=== PATIENT | male | born 1960 | race Caucasian/White ===

== ENCOUNTER 2021-04-18 14:21 | Observation (INO) | payer OTHER ==
[2021-04-18 15:04] LABS: BASO % 1.9 % (0-2.0); EOS % 2.9 % (0-4.5); HEMATOCRIT 43.2 % (35.4-49); HEMOGLOBIN 14.6 GM/dl (11.7-16.9); LYMPH % 15.2 % (8-40); MCH 31.9 pg (25.7-33.7); MCHC 33.9 g/dl (32.0-35.9); MEAN CELL VOLUME 94.2 fl (80-96); MONO % 8.4 % (3.8-10.2); NEUT % 71.6 % (42.8-82.8); PLATELET COUNT 190 10^3/uL (134-434); RBC 4.59 M/mm3 (4.00-5.60); RDW 14.4 % (11.9-15.9); WHITE BLOOD COUNT 8.8 K/mm3 (4.0-10.8)
[2021-04-18 15:20] LABS: ALBUMIN 3.2 g/dl (3.4-5.0); ALK PHOS 50 U/L (45-117); ANION GAP 13 MMOL/L (8-16); BILIRUBIN,TOTAL 1.1 mg/dl (0.2-1); CALCIUM 8.4 mg/dl (8.5-10); CHLORIDE 101 mmol/L (98-107); CO2 23 mmol/L (21-32); CREATININE 1.5 mg/dl (0.55-1.3); GLUCOSE,RANDOM 120 mg/dl (74-106); SGOT/AST 22 U/L (15-37); SGPT/ALT 15 U/L (13-61); SODIUM 137 mmol/L (136-145); TOT PROT 5.5 g/dl (6.4-8.2)
[2021-04-18 15:34] LABS: ACTIVATED PTT 32.4 SECONDS (25.2-36.5)
[2021-04-18 15:39] LABS: INR 0.86 (0.82-1.09); PROTHROMBIN TIME (PATIENT) 9.6 SEC (10.2-13.0)
[2021-04-18 15:43] LABS: EPITHELIAL CELLS RARE /hpf
[2021-04-18 16:37] LABS: URINE AMPHETAMINES NEGATIVE (NEGATIVE)
[2021-04-18 16:38] LABS: COCAINE, UR POSITIVE (NEGATIVE); METHADONE, UR NEGATIVE (NEGATIVE); OPIATES, URI NEGATIVE (NEGATIVE); PHENCYCLIDINE,URINE NEGATIVE (NEGATIVE); URINE BARBITURATES NEGATIVE (NEGATIVE); URINE BENZODIAZEPINES NEGATIVE (NEGATIVE)
[2021-04-18] MEDS ORDERED: KETOROLAC TROMETHAMINE 15 MG/ML VIAL IVPB ONE (17:13)
[2021-04-18] MEDS ORDERED: KETOROLAC TROMETHAMINE 15 MG/ML VIAL ONE (17:44)
[2021-04-18 18:47] VITALS: BMI 33.6
[2021-04-18] MEDS ORDERED: PNEUMOC 13-VAL CONJ-DIP CRM/PF 0.5 ML DISP.SYRIN IM ONE (18:49)
[2021-04-18] MEDS ORDERED: ATORVASTATIN CA 20 MG TABLET (FP) PO SCH (22:00)
[2021-04-18] MEDS ORDERED: MELATONIN 5 MG TABLETS PO ONE (23:17)
[2021-04-19] MEDS ORDERED: KETOROLAC TROMETHAMINE 15 MG/ML VIAL IM ONE
[2021-04-19] MEDS ORDERED: HEPARIN NA (PORCINE) 5,000 UNITS/ML 1ML VIAL SQ SCH (06:00)
[2021-04-19] MEDS ORDERED: ACETAMINOPHEN 325 MG TABLET (FP) PO PRN (06:09)
[2021-04-19] MEDS ORDERED: MELATONIN 5 MG TABLETS PO PRN (06:09)
[2021-04-19] MEDS ORDERED: GEMFIBROZIL 600 MG TABLET (FP) PO SCH (07:00)
[2021-04-19 08:52] VITALS: BP 131/61; PULSE 61; TEMP 98.5
[2021-04-19 09:49] LABS: CALCIUM 7.8 mg/dl (8.5-10); CREATININE 1.5 mg/dl (0.55-1.3)
[2021-04-19] MEDS ORDERED: LISINOPRIL 20 MG TABLET PO SCH (10:00)
[2021-04-19] MEDS ORDERED: FLU VACC QS2021-22(6MOS UP)/PF 60 MCG/0.5 ML SYRINGE IM ONE (10:00)
[2021-04-19] MEDS ORDERED: ATENOLOL 50 MG TABLET (FP) PO SCH (10:00)
[2021-04-19] MEDS ORDERED: PANTOPRAZOLE 40 MG TABLET PO SCH (10:00)
[2021-04-19] MEDS ORDERED: FUROSEMIDE 40 MG TABLET (FP) PO SCH (10:00)
[2021-04-19] MEDS ORDERED: amLODIPine BESYLATE 10 MG TABLET (FP) PO SCH (10:00)
[2021-04-19] MEDS ORDERED: SODIUM BICARBONATE 650 MG TABLET PO SCH (10:00)
== END 2021-04-19 12:52 | disposition home or self-care (01) ==
LOC: FER 14:21 → UNDOADMOB 17:12 → FM/S 17:12 → INTOOBSV 17:12 → FM/S 22:01
PROVIDERS: ADMIT Internal Medicine; ATTEND Nurse Practitioner Acute Care
PROC: 3E023GC Introduction of Other Therapeutic Substance into Muscle, Percutaneous Approach (ICD-10-PCS; principal; 2021-04-18)
PROC: 3E0234Z Introduction of Serum, Toxoid and Vaccine into Muscle, Percutaneous Approach (ICD-10-PCS; 2021-04-18)
PROC: 3E0333Z Introduction of Anti-inflammatory into Peripheral Vein, Percutaneous Approach (ICD-10-PCS; 2021-04-18)
PROC: 3E0233Z Introduction of Anti-inflammatory into Muscle, Percutaneous Approach (ICD-10-PCS; 2021-04-18)
DX: N18.9 Chronic kidney disease, unspecified (principal); R26.2 Difficulty in walking, not elsewhere classified; M48.00 Spinal stenosis, site unspecified; F10.21 Alcohol dependence, in remission; G89.29 Other chronic pain; F14.90 Cocaine use, unspecified, uncomplicated; Z59.00 Homelessness unspecified; H91.8X1 Other specified hearing loss, right ear; Z87.81 Personal history of (healed) traumatic fracture; E66.9 Obesity, unspecified; M25.50 Pain in unspecified joint; Z68.33 Body mass index [BMI] 33.0-33.9, adult; I25.2 Old myocardial infarction; Z23 Encounter for immunization
CPT/HCPCS: 36415; 70450-TC; 71045-TC-FY; 72125-TC; 80048; 80053; 80307; 81003; 81015; 82550; 82553; 82962; 84484; 84550; 85025; 85610; 85730; 86140; 86850; 86900; 86901; 87086; 90686; 93005; 96372; 96374; 97116-GP; 97162-GP; 99285-25; C9803; G0008; G0378; J1644; U0003; U0005

== ENCOUNTER 2021-07-22 13:08 | Emergency (ER) | payer OTHER ==
[2021-07-22 13:28] VITALS: BP 138/79; PULSE 61; TEMP 99; BMI 29.0
[2021-07-22] MEDS ORDERED: ACETAMINOPHEN 1000 MG/100 ML BAG IVPB ONE (13:41)
[2021-07-22] MEDS ORDERED: METOCLOPRAMIDE HCL INJECTION 10 MG/2 ML VIAL IVPUSH ONE (13:41)
[2021-07-22] MEDS ORDERED: LACTATED RINGERS SOLUTION 1000 ML INFUS.BAG IV ONE (13:41)
[2021-07-22] MEDS ORDERED: ACETAMINOPHEN INJECTION 100 ML IVPB ONE (14:12)
[2021-07-22] MEDS ORDERED: METOCLOPRAMIDE HCL INJECTION 10 MG/2 ML VIAL ONE (14:13)
[2021-07-22 14:34] LABS: EPITHELIAL CELLS RARE /hpf
[2021-07-22 14:37] LABS: ALBUMIN 3.4 g/dl (3.4-5.0); BILIRUBIN,TOTAL 0.7 mg/dl (0.2-1); CALCIUM 8.7 mg/dl (8.5-10); CREATININE 1.5 mg/dl (0.55-1.3); TOT PROT 5.5 g/dl (6.4-8.2)
[2021-07-22 15:42] LABS: BASO % 0.4 % (0-2.0); EOS % 2.3 % (0-4.5); HEMATOCRIT 43.5 % (35.4-49); HEMOGLOBIN 14.2 GM/dL (11.7-16.9); LYMPH % 18.4 % (8-40); MCH 30.2 pg (25.7-33.7); MCHC 32.8 g/dl (32.0-35.9); MEAN CELL VOLUME 92.3 fl (80-96); MEAN PLT VOLUME 9.4 fl (7.5-11.1); MONO % 7.6 % (3.8-10.2); NEUT % 71.3 % (42.8-82.8); PLATELET COUNT 184 10^3/uL (134-434); RBC 4.71 M/mm3 (4.00-5.60); RDW 14.6 % (11.9-15.9); WHITE BLOOD COUNT 7.9 K/mm3 (4.0-10.0)
== END 2021-07-22 16:00 | disposition home or self-care (01) ==
LOC: FER 13:08
PROC: 3E0333Z Introduction of Anti-inflammatory into Peripheral Vein, Percutaneous Approach (ICD-10-PCS; principal; 2021-07-22)
PROC: 3E033GC Introduction of Other Therapeutic Substance into Peripheral Vein, Percutaneous Approach (ICD-10-PCS; 2021-07-22)
DX: M54.50 Low back pain, unspecified (principal); G43.909 Migraine, unspecified, not intractable, without status migrainosus
CPT/HCPCS: 36415; 71045-TC-FY; 80053; 81003; 81015; 84484; 85025; 87086; 93005; 99285-25; J0131

== ENCOUNTER 2021-08-05 13:50 | Emergency (ER) | payer OTHER ==
[2021-08-05 13:55] VITALS: BMI 29.0
[2021-08-05] MEDS ORDERED: SODIUM CHLORIDE 1,000 ML IV STA (15:25)
[2021-08-05] MEDS ORDERED: chlordiazePOXIDE HCL 25 MG CAPSULE PO ONE (15:25)
[2021-08-05] MEDS ORDERED: ACETAMINOPHEN 1000 MG/100 ML BAG IVPB ONE (15:29)
[2021-08-05] MEDS ORDERED: chlordiazePOXIDE HCL 25 MG CAPSULE ONE (15:51)
[2021-08-05] MEDS ORDERED: ACETAMINOPHEN INJECTION 100 ML IVPB ONE (15:51)
[2021-08-05 16:06] LABS: ALBUMIN 3.3 g/dl (3.4-5.0); BILIRUBIN,TOTAL 0.9 mg/dl (0.2-1); CALCIUM 8.9 mg/dl (8.5-10); CREATININE 1.6 mg/dl (0.55-1.3); MAGNESIUM 1.9 mg/dL (1.8-2.4); PHOSPHOROUS 3.6 mg/dl (2.5-4.9); TOT PROT 5.7 g/dl (6.4-8.2)
[2021-08-05 16:58] LABS: BASO % 0.4 % (0-2.0); EOS % 1.8 % (0-4.5); HEMATOCRIT 44.7 % (35.4-49); HEMOGLOBIN 15.1 GM/dL (11.7-16.9); LYMPH % 17.3 % (8-40); MCH 30.8 pg (25.7-33.7); MCHC 33.7 g/dl (32.0-35.9); MEAN CELL VOLUME 91.3 fl (80-96); NEUT % 71.5 % (42.8-82.8); PLATELET COUNT 173 10^3/uL (134-434); RDW 15.4 % (11.9-15.9)
[2021-08-05 19:31] VITALS: BP 128/77; PULSE 78; TEMP 97.8
== END 2021-08-05 19:25 | disposition home or self-care (01) ==
LOC: SUPCPDRO 13:50 → FER 13:50
PROC: 3E033GC Introduction of Other Therapeutic Substance into Peripheral Vein, Percutaneous Approach (ICD-10-PCS; principal; 2021-08-05)
DX: U07.1 COVID-19 (principal)
CPT/HCPCS: 36415; 70450-TC; 71045-TC-FY; 80053; 83735; 84100; 85025; 93005; 99285-25; C9803; J0131; U0003; U0005

== ENCOUNTER 2021-08-21 21:13 | Emergency (ER) | payer OTHER ==
[2021-08-21 21:25] VITALS: BP 148/72; PULSE 79; TEMP 99.1; BMI 29.0
[2021-08-21] MEDS ORDERED: ACETAMINOPHEN 500 MG TABLET (FP) PO ONE (21:40)
[2021-08-21] MEDS ORDERED: ACETAMINOPHEN 500 MG TABLET (FP) ONE (21:42)
== END 2021-08-21 22:42 | disposition home or self-care (01) ==
LOC: FER 21:13
DX: S00.03XA Contusion of scalp, initial encounter (principal); S06.0X0A Concussion without loss of consciousness, initial encounter
CPT/HCPCS: 70450-TC; 99284-25

== ENCOUNTER 2021-11-17 10:56 | Emergency (ER) | payer OTHER ==
[2021-11-17 11:38] VITALS: BP 134/78; PULSE 61; TEMP 98.1; BMI 35.2
[2021-11-17 13:21] LABS: EPI CELLS 1 /uL (0-25.1); HYALINE CASTS 0 /uL (0-3.1); PH,URINE 5.5 (5.0-8.0); URINE APPEARANCE CLEAR; URINE BACTERIA 0 /uL (0-1359); URINE BILIRUBIN NEGATIVE (NEGATIVE); URINE COLOR YELLOW; URINE GLUCOSE (UA) NEGATIVE (NEGATIVE); URINE KETONE NEGATIVE (NEGATIVE); URINE LEUK ESTERASE NEGATIVE (NEGATIVE); URINE NITRITE NEGATIVE (NEGATIVE); URINE PROTEIN 2+ (NEGATIVE); URINE RBC 12 /uL (0-23.9); URINE UROBILINOGEN 0.2 mg/dL (0.2-1.0); URINE WBC 3 /uL (0-25.8)
[2021-11-17 13:23] LABS: BASO % 0.5 % (0-2.0); EOS % 3.1 % (0-4.5); HEMATOCRIT 44.8 % (35.4-49); HEMOGLOBIN 14.9 GM/dL (11.7-16.9); LYMPH % 15.6 % (8-40); MCHC 33.1 g/dl (32.0-35.9); MEAN CELL VOLUME 93.5 fl (80-96); MEAN PLT VOLUME 10.2 fl (7.5-11.1); MONO % 8.9 % (3.8-10.2); NEUT % 71.9 % (42.8-82.8); PLATELET COUNT 166 10^3/uL (134-434); RBC 4.79 M/mm3 (4.00-5.60); RDW 14.9 % (11.9-15.9); WHITE BLOOD COUNT 6.4 K/mm3 (4.0-10.0)
[2021-11-17 13:39] LABS: ALBUMIN 3.6 g/dl (3.4-5.0); BLOOD UREA NITROGEN 60.8 mg/dL (7-18); CALCIUM 9.2 mg/dL (8.5-10.1)
[2021-11-17 13:42] LABS: CREATININE 1.8 mg/dL (0.55-1.3)
[2021-11-17 13:43] LABS: TOT PROT 6.4 g/dl (6.4-8.2)
[2021-11-17 13:44] LABS: BILIRUBIN,TOTAL 0.6 mg/dL (0.2-1)
== END 2021-11-17 15:50 | disposition left against medical advice (07) ==
LOC: JER 10:56
DX: R55 Syncope and collapse (principal); I12.9 Hypertensive chronic kidney disease with stage 1 through stage 4 chronic kidney disease, or unspecified chronic kidney disease; N18.9 Chronic kidney disease, unspecified
CPT/HCPCS: 0241U-QW; 36415; 70450-TC; 71045-TC-FY; 80053; 80307; 81003; 82962; 84484; 85025; 87086; 87807; 93005; 93010; 99285-25; C9803-CS; U0003; U0005

== ENCOUNTER 2022-02-06 21:18 | Emergency (ER) | payer OTHER ==
[2022-02-06 21:40] VITALS: BP 136/87; PULSE 89; RESP 17; TEMP 99.2; BMI 35.2
[2022-02-06] MEDS ORDERED: AMOX TR/POT CLAV 875MG/125MG TABLETS (FP) ONE (21:51)
[2022-02-06] MEDS ORDERED: AMOX TR/POT CLAV 875MG/125MG TABLETS (FP) PO ONE (21:51)
[2022-02-06] MEDS ORDERED: IBUPROFEN 600 MG TABLET (FP) PO ONE ×2 (21:55→21:56)
== END 2022-02-06 22:17 | disposition home or self-care (01) ==
LOC: FER 21:18
DX: S40.261A Insect bite (nonvenomous) of right shoulder, initial encounter (principal); L08.9 Local infection of the skin and subcutaneous tissue, unspecified; W57.XXXA Bitten or stung by nonvenomous insect and other nonvenomous arthropods, initial encounter
CPT/HCPCS: 99283-25